=== PATIENT | male | born 1960 | race Caucasian/White ===

== ENCOUNTER 2017-02-05 12:52 | Outpatient (CLI) | payer OTHER ==
[2017-02-05 13:15] LABS: CREATININE 0.9 mg/dL (0.6-1.2)
[2017-02-05] MEDS ORDERED: IOPAMIDOL-300 100 ML VIAL ONE (13:18)
[2017-02-05] MEDS ORDERED: IOPAMIDOL-300 50 ML VIAL ONE (13:18)
[2017-02-05] MEDS ORDERED: IOPAMIDOL-300 100 ML VIAL IVP ONE (15:28)
[2017-02-05] MEDS ORDERED: IOPAMIDOL-300 50 ML VIAL PO ONE (15:28)
--- NOTE | 2017-02-05 17:58 | CT Report ---
CT ABDOMEN AND PELVIS WITH CONTRAST: 02/05/2017 CLINICAL INDICATION: Pain. Axial CT images of the abdomen and pelvis were obtained with 100 mL Isovue-300 intravenously as well as oral contrast. In accordance with CT protocol optimization, one or more of the following dose reduction techniques w ere utilized for this exam: automated exposure control, adjustment of mA and/or KV based on patient size, or use of iterative reconstructive technique. No previous CT is available for comparison. Limited evaluation of the lung bases is unremarkable. ABDOMEN: The liver demonstrates a decrease in attenuation, likely representing fatty infiltration. No focal lesion is seen. The spleen, pancreas, kidneys, and adrenal glands are unremarkable. The ga llbladder is not dilated. No bowel dilatation, free gas, or free fluid is present. The appendix is seen in the right lower quadrant, and is normal in caliber. PELVIS: The pelvic organs are unremarkable. No pelvic adenopathy or free fluid is present. No kaitlynn colonic inflammation is seen. Osseous structures demonstrate degenerative changes. IMPRESSION: NO EVIDENT ETIOLOGY FOR PATIENT'S PAIN. JOB #: [id number] EXT JOB #:[id number]
== END 2017-02-05 12:53 | disposition home or self-care (01) ==
LOC: DI 12:52
PROVIDERS: ATTEND Family Medicine
DX: R10.32 Left lower quadrant pain (principal)
CPT/HCPCS: 36415; 74177; 82565; Q9967

== ENCOUNTER 2017-07-08 10:50 | Day surgery (SDC) | payer OTHER ==
[2017-07-08] MEDS ORDERED: LACTATED RINGERS 1,000 ML IV ONE ×2 (11:58→14:15)
[2017-07-08] MEDS ORDERED: ceFAZolin 2 GM/50 ML 2 GM/50 ML BAG IV ONE (12:49)
[2017-07-08] MEDS ORDERED: BUPIVACAINE 0.25%-EPI 1:200000 PF 30 ML VIAL ONE (14:14)
[2017-07-08] MEDS ORDERED: BUPIVACAINE 0.25% PF 30 ML VIAL ONE (14:14)
[2017-07-08] MEDS ORDERED: ONDANSETRON 4 MG/2 ML VIAL IVP ONE (14:30)
[2017-07-08] MEDS ORDERED: fentaNYL 100 MCG/2 ML VIAL IVP ONE (14:30)
[2017-07-08] MEDS ORDERED: MIDAZOLAM 2 MG/2 ML VIAL IVP ONE (14:30)
[2017-07-08] MEDS ORDERED: KETOROLAC 30 MG/ML VIAL IVP ONE (14:30)
[2017-07-08] MEDS ORDERED: PROPOFOL 200 MG/20 ML VIAL IVP ONE (14:30)
[2017-07-08] MEDS ORDERED: LIDOCAINE-MPF 2% 5 ML VIAL IM ONE (14:30)
[2017-07-08] MEDS ORDERED: LIDOCAINE-MPF 1% 30 ML VIAL ONE (14:31)
[2017-07-08] MEDS ORDERED: LIDOCAINE 1% 50 ML MDV SUBQ ONE ×2 (14:38)
[2017-07-08 15:39] VITALS: BP 128/58
--- NOTE | 2017-07-09 22:33 | OPERATIVE REPORT ---
DATE OF SERVICE: 07/08/2017 Physician: Jesus Ratliff MD PREOPERATIVE DIAGNOSIS: Right fifth digit triggering. POSTOPERATIVE DIAGNOSIS: Right fifth digit triggering. PROCEDURE PERFORMED: Right fifth finger A1 beau release.. SURGEON: Jesus Ratliff MD CABINET ABRASIVE SANDBLASTER: None. ANESTHESIA: IV sedation. INDICATIONS FOR PROCEDURE: This man had recurrent snapping in his fifth finger, which had failed after 2 injections. He has had other triggering fingers previously. DESCRIPTION OF PROCEDURE: Patient was brought into the operating room and placed under light sedation by the anesthesiologist. A transverse incision was made along the distal palmar crease for a distance of about 1.5 cm. Skin dermis was cut sharply. Below this, scissors were used with a spreading action to create a path down to the A1 beau. The ulnar digital nerve tended to come across this area and great care was taken to keep it swept out of the way with a retractor. There was a moderate amount of fatty tissue surprisingly, which made it a little more difficult to get the A1 beau steadily exposed. A longitudinal incision was then made in the A1 beau. It was possible to flex or extend the finger and see the tendon slide smoothly. There was no tendency for it to shift. We aroused the patient somewhat and asked him to clench a fist and straighten out the fingers fully. This was done without any sign of skipping. Wound was irrigated with normal saline. The wound was closed with interrupted [id number] 4-0 nylon sutures. Sterile dressing was applied. Patient was then taken to recovery area in good condition, having tolerated the procedure well with less than 1 mL of blood loss. TD: 07/09/2017 22:32
== END 2017-07-08 10:51 | disposition home or self-care (01) ==
LOC: SDS 10:50
PROVIDERS: ATTEND Orthopaedic Surgery
PROC: 0LN70ZZ Release Right Hand Tendon, Open Approach (ICD-10-PCS; principal; 2017-07-08 12:00)
DX: M65.351 Trigger finger, right little finger (principal); I10 Essential (primary) hypertension; E78.5 Hyperlipidemia, unspecified; E03.9 Hypothyroidism, unspecified
CPT/HCPCS: 26055; J0690; J7120

== ENCOUNTER 2017-07-26 17:41 | Observation (INO) | payer OTHER ==
[2017-07-26 18:08] LABS: BASOPHILS # (AUTO) 0.1 10^3/uL (0.0-0.1); BASOPHILS % (AUTO) 0.9 %; EOSINOPHILS # (AUTO) 0.3 10^3/uL (0.0-0.7); EOSINOPHILS % (AUTO) 3.6 %; HGB - HEMOGLOBIN 15.9 g/dL (14.0-18.0); LYMPHOCYTES # (AUTO) 3.1 10^3/uL (1.5-3.5); LYMPHOCYTES % (AUTO) 35.3 %; MEAN CORPUSCULAR HGB CONC 33.7 g/dL (32.0-36.0); MEAN CORPUSCULAR VOLUME 92.2 fL (80.0-94.0); MEAN PLATELET VOLUME 9.8 fL (7.4-11.4); MONOCYTES # (AUTO) 0.8 10^3/uL (0.0-1.0); MONOCYTES % (AUTO) 9.5 %; NEUTROPHILS # (AUTO) 4.5 10^3/uL (1.5-6.6); NEUTROPHILS % (AUTO) 50.7 %; PLT - PLATELET COUNT 192 10^3/uL (130-450); RED BLOOD COUNT 5.13 10^6/uL (4.70-6.10); RED CELL DISTRIBUTION WIDTH 12.4 % (12.0-15.0); WHITE BLOOD COUNT 8.9 x10^3/uL (4.8-10.8)
[2017-07-26 18:19] LABS: ALBUMIN 4.6 g/dL (3.2-5.5); ALBUMIN/GLOBULIN RATIO 1.4 (1.0-2.2); BILIRUBIN,TOTAL 0.8 mg/dL (0.2-1.0); CALCIUM 9.5 mg/dL (8.5-10.3); TOTAL PROTEIN 7.8 g/dL (6.7-8.2)
--- NOTE | 2017-07-26 18:25 | ED Physician Documentation ---
History of Present Illness - Stated complaint Stated Complaint: CHEST PX - Chief complaint Chief Complaint: Cardiac - Additonal information Additional information: hx from pt 57 m hx HTN no DM HLD fhx smoking chest pressure and soa and nausea started at 8 AM waxed and waned all day worse with exertion better with rest no fever or cough no recent travel or leg edema Review of Systems Constitutional: denies: Fever, Chills Throat: denies: Sore throat Cardiac: reports: Chest pain / pressure Respiratory: reports: Dyspnea GI: reports: Nausea Musculoskeletal: denies: Extremity pain, Extremity swelling Endocrine: denies: Easy bruising / bleeding Immunocompromised: denies: Immunocompromised PD PAST MEDICAL HISTORY - Past Medical History Cardiovascular: Hypertension Respiratory: None Endocrine/Autoimmune: HyPOthyroidism GI: GI bleed : None HEENT: None Psych: Depression, Anxiety, ADD/ADHD Musculoskeletal: None Derm: Psoriasis - Past Surgical History General: Colonoscopy, EGD Ortho: Carpal Tunnel surgery, Other HEENT: Tonsil/Adenoidectomy - Present Medications Home Medications: Ambulatory Orders Medication Instructions Recorded Confirmed Dextroamphetamine/Amphetamine 12.5 mg PO BID 09/09/13 07/03/17 [Adderall 12.5 mg Tablet] Divalproex Sodium [Depakote ER] 500 mg PO DAILY 09/09/13 07/03/17 Fluoxetine HCl [Prozac] 40 mg PO DAILY 09/09/13 07/03/17 Levothyroxine [Synthroid] 100 mcg PO QDAC 09/09/13 07/03/17 Divalproex Sodium [Depakote ER] 500 mg PO DAILY 07/03/17 07/03/17 - Allergies Allergies/Adverse Reactions: Allergies Allergy/AdvReac Type Severity Reaction Status Date / Time No Known Drug Allergies Allergy Verified 07/03/17 10:55 PD ED PE NORMAL - Vitals Vital signs reviewed: Yes - General General: Alert and oriented X 3 - HEENT HEENT: PERRL - Neck Neck: Supple, no meningeal sign - Cardiac Cardiac: RRR - Respiratory Respiratory: No respiratory distress, Clear bilaterally - Abdomen Abdomen: Soft, Non tender - Derm Derm: Normal color - Extremities Extremities: No deformity, Normal ROM s pain, No edema, No calf tenderness / cord - Neuro Neuro: Alert and oriented X 3 Results - Vitals Vitals: Vital Signs - 24 hr 07/26/17 07/26/17 17:47 19:15 Temperature 36.6 C Heart Rate 65 57 L Respiratory 18 19 Rate Blood Pressure 168/86 H 147/105 H O2 Saturation 99 97 Oxygen O2 Source Room air - EKG (time done) 1748 Rate: Rate (enter#) (64) Rhythm: NSR [place]: Normal Intervals: Normal LA - Labs Labs: Laboratory Tests 07/26/17 07/26/17 07/26/17 18:00 18:00 18:00 WBC 8.9 RBC 5.13 Hgb 15.9 Hct 47.3 MCV 92.2 MCH 31.0 MCHC 33.7 RDW 12.4 Plt Count 192 MPV 9.8 Neut # 4.5 Lymph # 3.1 [place] # 0.8 Eos # 0.3 Baso # 0.1 Absolute Nucleated RBC 0.00 Nucleated RBC % 0.0 Sodium 135 Potassium 3.7 Chloride 102 Carbon Dioxide 25 Anion Gap 8.0 BUN 18 Creatinine 1.0 Estimated GFR (MDRD) 77 L Glucose 91 Calcium 9.5 Total Bilirubin 0.8 AST 24 ALT 27 Alkaline Phosphatase 77 Troponin I < 0.04 Total Protein 7.8 Albumin 4.6 Globulin 3.2 Albumin/Globulin Ratio 1.4 Lipase 33 - Rads (name of study) CXR Radiology: See rad report (NACPD) PD MEDICAL DECISION MAKING - ED course ED course: chest pain gone with nitro and asa heart score 4 will admit for serial enzymes and echo / stress Departure - Departure Disposition: ED Place in Observation Clinical Impression: Chest pain Qualifiers: Chest pain type: unspecified Qualified Code(s): R07.9 - Chest pain, unspecified Condition: Good
--- NOTE | 2017-07-26 18:29 | XRAY Preliminary Report ---
Exam: XR CHEST 2 VIEW X-RAY IMPRESSION: Normal 2-view chest radiography. [facility] SITE ID: [id number]
--- NOTE | 2017-07-26 18:29 | XRAY Report ---
EXAM: CHEST RADIOGRAPHY EXAM DATE: 07/26/2017 06:12 PM. CLINICAL HISTORY: Chest pain/soa. COMPARISON: None. TECHNIQUE: 2 views. FINDINGS: Lungs/Pleura: No focal opacities evident. No pleural effusion. No pneumothorax. Normal volumes. Mediastinum: Heart and mediastinal contours are unremarkable. Other: None. IMPRESSION: Normal 2-view chest radiography. [facility] Referring Provider Line: [phone] SITE ID: [id number]
[2017-07-26] MEDS ORDERED: NITROGLYCERIN SL 0.4 MG TABLET SL STA (19:07)
[2017-07-26] MEDS ORDERED: ASPIRIN CHEW 81 MG TABLET PO STA (19:07)
[2017-07-26] MEDS ORDERED: ACETAMINOPHEN 325 MG TABLET PO STA (20:53)
[2017-07-26] MEDS ORDERED: ACETAMINOPHEN 325 MG TABLET PO PRN (21:11)
[2017-07-26] MEDS ORDERED: oxyCODONE 5 MG TABLET PO PRN (21:11)
[2017-07-26] MEDS ORDERED: SODIUM CHLORIDE FLUSH 0.9% 10 ML SYRINGE IVP PRN (21:11)
[2017-07-26] MEDS ORDERED: ZOLPIDEM 5 MG TABLET PO PRN (21:11)
[2017-07-26] MEDS ORDERED: ONDANSETRON 4 MG/2 ML VIAL IVP PRN (21:11)
[2017-07-27] MEDS: SUCRALFATE 1 GM/10 ML UDC PO SCH ×3 (00:26→12:16)
[2017-07-27] MEDS: SODIUM CHLORIDE FLUSH 0.9% 10 ML SYRINGE IVP SCH ×2 (00:27→08:24)
--- NOTE | 2017-07-27 04:07 | HISTORY & PHYSICAL EXAMINATION ---
DATE OF SERVICE: 07/26/2017 Physician: Socorro Peterson MD CHIEF COMPLAINT: Chest pain. HISTORY OF PRESENT ILLNESS: Mr. Perez is a 57-year-old, white male with past medical history of hypertension, dyslipidemia, hypothyroidism, anxiety, depression, and with history of esophageal dilatation about 2 years ago. In addition, he has history of laparoscopic Conchita fundoplication and gastrointestinal bleed, which he had dealt with about 10 years ago. Patient reports that he woke up in the morning around 8 a.m., he started to experience a pressure-like chest discomfort. He was nauseous and he felt he would throw up, but did not have emesis. He felt chest pressure, heaviness-like discomfort. It felt like indigestion. Patient measured his blood pressure and it was 140/90, which is higher than his usual. He also complained of some shortness of breath. His symptoms are waxing and waning throughout the day. He never experienced similar chest pain in the past. Notably, about 10 years ago when he had fundoplication, he did have chest pain, but he felt it was different. Two years ago, when he had esophageal dilatation for dysphagia, his symptoms included food being stuck in his throat, but at that time he did not remember having chest pain. On further interview, he reports never undergoing a cardiac evaluation. He does not have history of coronary artery disease, diabetes, and he never saw a butter maker. Regarding patient's habits, he is a nonsmoker. He drinks every day, usually drinks a couple of beers or a glass of wine. Upon presentation to the ER, patient was hemodynamically stable and afebrile. Initial blood pressure was 168/86, heart rate was in the 60s, respiratory rate 18, oxygen saturation 99% on room air. ER workup showed negative troponin, normal EKG. ER physician suggested we admit this patient for chest pain rule out. PAST MEDICAL HISTORY 1. Dyslipidemia. 2. Hypertension, recently started hydrochlorothiazide. 3. Hypothyroidism. 4. Depression/anxiety. 5. History of laparoscopic Conchita fundoplication about 10 years ago. 6. History of GI bleed about 10 years ago. No further details available. 7. Status post esophageal dilatation 2 years ago, history of dysphagia. 8. Carpal tunnel release. FAMILY HISTORY: Positive for hypertension and Parkinson disease in the mother and heart disease in a grandparent. SOCIAL HISTORY: Patient does not smoke. Drinks daily, usually drinks a couple of beers or a glass of wine with dinner. PRIMARY CARE PHYSICIAN: Pam Jack REVIEW OF SYSTEMS: Please see pertinent positives listed above at history of present illness. Patient denied additional complaints on the 12-point review. OUTPATIENT MEDICATIONS Medication list is not yet updated or verified. Patient was on: 1. Adderall. 2. Depakote 3. Fluoxetine. 4. Levothyroxine. 5. Hydrochlorothiazide. PHYSICAL EXAMINATION VITAL SIGNS: Please see listed above at history of present illness. GENERAL: Patient is a well-developed, well-nourished male who was not in distress. CARDIOVASCULAR: S1, S2. Regular. No pathologic murmur. RESPIRATORY: Clear to auscultation bilaterally without wheezes or crackles. ABDOMEN: Soft, benign, nontender. Normal bowel tones. LYMPHATIC: No lymphedema. MUSCULOSKELETAL: Unremarkable, atraumatic. SKIN: No jaundice. No pallor. NEUROLOGIC: Alert, oriented, nonfocal. PSYCHIATRIC: Cooperative, pleasant to talk to. ASSESSMENT AND PLAN: Mr. Perez is a 57-year-old male. He does have some cardiac risk factors which include hypertension and dyslipidemia. At the same time, he does have history of esophageal dilatation, and history of hiatal hernia and Conchita fundoplication. His symptoms starting in the morning, being associated with nausea and indigestion, suggest a possible esophageal origin or reflux as the etiology. Therefore, we are going to treat him with proton pump inhibitor and sucralfate. At the same time, we are observing him overnight for rapid cardiac rule out. He will be monitored on telemetry. We will cycle troponins. If he rules out per enzyme criteria, then further risk stratification could be considered with stress test. I am not sure whether a stress test could be done over the weekend inpatient. If not, then we could refer patient for outpatient stress test. Additional orders will include DVT prophylaxis. I will restart outpatient medications when reconciliation is available. FULL CODE. Attestation: I certify that the reasonable expectation for this patient is be hospitalized for less than 48 hrs, therefore he is admitted under observation. Time spent in the care of this patient was 50 minutes. cc: Pam Jack DO TD: 07/27/2017 04:06 MTDHannah
[2017-07-27] MEDS ORDERED: PANTOPRAZOLE 40 MG TABLET PO SCH (07:00)
[2017-07-27] MEDS ORDERED: POLYETHYLENE GLYCOL 3350 17 GM PACKET PO SCH (09:00)
--- NOTE | 2017-07-27 11:53 | Discharge Plan ---
Discharge Plan Disposition: 01 Home, Self Care Condition: Stable Diet: Low Sodium Activity Restrictions: Activity as Tolerated Shower Restrictions: No Driving Restrictions: No Additional Instructions or Follow Up instructions: SEE YOUR DOCTOR IN FOLLOW UP THIS COMING WEEK FOR FURTHER EVALUATION AND MANAGEMENT OF THIS SYMPTOM. No Smoking: If you smoke, Please STOP! Call for help. Follow-up with: Pam Jack DO [Primary Care Provider] -
[2017-07-27 12:40] VITALS: BP 121/89
--- NOTE | 2017-07-29 19:40 | PROVIDER PROGRESS NOTE ---
Assessment/Plan - Problem List (1) Atypical chest pain Assessment/Plan: DATE OF SERVICE 07/27/17 The patient's symptoms were more indigestion in nature than angina-like. And due to his extensive GI history, GI F/U was advised ,after he has now ruled out for an [place] with normal troponins and EKG with no changes since the initial ER EKG. He will be discharged today, but needs an outpatient stress test, given his coronary risk factors. F/U with his PCP is advised this week to arrange a stress test and/or referral to a Nutritional Chemist. Light activity is advised until CAD is ruled out. (2) GERD (gastroesophageal reflux disease) Assessment/Plan: History of esophageal stricture needimg dilitation and hiatal hernia neding a Dyllan fundoplication, suggest that these symptoms may be of a GI origin. He was advised to see his PCP this week, for further testing and management. (3) HTN (hypertension) Qualifiers: Hypertension type: essential hypertension Qualified Code(s): I10 - Essential (primary) hypertension Assessment/Plan: His medications were continued with adequate BP control. F/U: with PCP in 1 week. Code Status: Full Code Medications at discharge: unchanged from pre-hospitalization. - Lab Result Fish Bone Diagrams: 07/26/17 18:00 07/26/17 18:00 - EKG Results EKG Interpreted Independently: Yes EKG Comparison: Unchanged from prior EKG Subjective - Subjective Patient Reports: Feeling Better, No Complaints Nursing Reports: Other (No chest pain since admission) Objective Vital Signs: Oxygen O2 Source Room air I&O (Last 24 Hrs): Intake and Output Totals x24h 07/27/17 07/28/17 07/29/17 23:59 23:59 23:59 Intake Total 1100 Balance 1100 General: Alert, Oriented x3 HEENT: Mucous membr. moist/pink Neck: Supple, No JVD, +2 carotid pulse wo bruit Neuro: Non Focal Cardiovascular: Regular rate, No murmurs Respiratory: No respiratory distress, Breath sounds nml Abdomen: Normal bowel sounds, Soft Extremities: No edema - Results Results: Laboratory Results WBC 8.9 x10^3/uL (4.8-10.8) 07/26/17 18:00 RBC 5.13 10^6/uL (4.70-6.10) 07/26/17 18:00 Hgb 15.9 g/dL (14.0-18.0) 07/26/17 18:00 Hct 47.3 % (42.0-52.0) 07/26/17 18:00 MCV 92.2 fL (80.0-94.0) 07/26/17 18:00 MCH 31.0 pg (27.0-31.0) 07/26/17 18:00 MCHC 33.7 g/dL (32.0-36.0) 07/26/17 18:00 RDW 12.4 % (12.0-15.0) 07/26/17 18:00 Plt Count 192 10^3/uL (130-450) 07/26/17 18:00 MPV 9.8 fL (7.4-11.4) 07/26/17 18:00 Neut # 4.5 10^3/uL (1.5-6.6) 07/26/17 18:00 Lymph # 3.1 10^3/uL (1.5-3.5) 07/26/17 18:00 [place] # 0.8 10^3/uL (0.0-1.0) 07/26/17 18:00 Eos # 0.3 10^3/uL (0.0-0.7) 07/26/17 18:00 Baso # 0.1 10^3/uL (0.0-0.1) 07/26/17 18:00 Absolute Nucleated RBC 0.00 x10^3/uL 07/26/17 18:00 Nucleated RBC % 0.0 /100WBC 07/26/17 18:00 Sodium 135 mmol/L (135-145) 07/26/17 18:00 Potassium 3.7 mmol/L (3.5-5.0) 07/26/17 18:00 Chloride 102 mmol/L (101-111) 07/26/17 18:00 Carbon Dioxide 25 mmol/L (21-32) 07/26/17 18:00 Anion Gap 8.0 (6-13) 07/26/17 18:00 BUN 18 mg/dL (6-20) 07/26/17 18:00 Creatinine 1.0 mg/dL (0.6-1.2) 07/26/17 18:00 Estimated GFR (MDRD) 77 (>89) L 07/26/17 18:00 Glucose 91 mg/dL (70-100) 07/26/17 18:00 Calcium 9.5 mg/dL (8.5-10.3) 07/26/17 18:00 Total Bilirubin 0.8 mg/dL (0.2-1.0) 07/26/17 18:00 AST 24 IU/L (10-42) 07/26/17 18:00 ALT 27 IU/L (10-60) 07/26/17 18:00 Alkaline Phosphatase 77 IU/L (42-121) 07/26/17 18:00 Troponin I < 0.04 ng/mL (<0.49) 07/27/17 09:36 Total Protein 7.8 g/dL (6.7-8.2) 07/26/17 18:00 Albumin 4.6 g/dL (3.2-5.5) 07/26/17 18:00 Globulin 3.2 g/dL (2.1-4.2) 07/26/17 18:00 Albumin/Globulin Ratio 1.4 (1.0-2.2) 07/26/17 18:00 Lipase 33 U/L (22-51) 07/26/17 18:00 - Procedures Procedures: Procedures DILATION OF ESOPHAGOGASTRIC JUNCTION, ENDO (05/06/15) EXCISION OF DUODENUM, ENDO, DIAGN (04/22/15) EXCISION OF LOWER ESOPHAGUS, ENDO, DIAGN (04/22/15) EXPLOR TEND SHEATH-HAND (09/10/13) INSPECTION OF LOWER INTESTINAL TRACT, ENDO (01/25/15) OTHER LOCAL DESTRUC SKIN (09/10/13) RELEASE RIGHT HAND TENDON, OPEN APPROACH (07/08/17) ABX Reporting Has patient been on IV antibiotics over the past 48 hours?: No
== END 2017-07-27 12:45 | disposition home or self-care (01) ==
LOC: ED 17:41 → OBS 21:11
PROVIDERS: ADMIT Internal Medicine; ATTEND Internal Medicine
DX: R07.89 Other chest pain (principal); K21.9 Gastro-esophageal reflux disease without esophagitis; I10 Essential (primary) hypertension; E03.9 Hypothyroidism, unspecified; F90.9 Attention-deficit hyperactivity disorder, unspecified type; F41.9 Anxiety disorder, unspecified; F32.9 Major depressive disorder, single episode, unspecified; E78.5 Hyperlipidemia, unspecified; Z87.19 Personal history of other diseases of the digestive system; Z79.899 Other long term (current) drug therapy
CPT/HCPCS: 36415; 71046; 80053; 83690; 84484; 85025; 93005; 99218; 99284; A9270

== ENCOUNTER 2017-08-08 10:02 | Outpatient (CLI) | payer OTHER ==
[2017-08-08 13:34] LABS: CHOL/HDL RATIO 3.9 (<5.0); CHOLESTEROL 206 mg/dL; HDL CHOLESTEROL 53 mg/dL; LDL CHOLESTEROL,CALCULATED 118 mg/dL; LDL/HDL RATIO 2.2 (<3.6); VLDL CHOLESTEROL 35 mg/dL
== END 2017-08-08 10:03 | disposition home or self-care (01) ==
LOC: LAB.WCP 10:02
PROVIDERS: ATTEND Family Medicine
DX: R07.9 Chest pain, unspecified (principal); E03.9 Hypothyroidism, unspecified
CPT/HCPCS: 36415; 80061; 83721; 84443

== ENCOUNTER 2017-12-05 13:54 | Outpatient (CLI) | payer OTHER | END 2017-12-05 13:55 | disposition home or self-care (01) | LOC: SC 13:54 | PROVIDERS: ATTEND Internal Medicine Pulmonary Disease | DX: G47.10 Hypersomnia, unspecified (principal); R06.83 Snoring; G47.8 Other sleep disorders; E66.9 Obesity, unspecified; Z68.30 Body mass index [BMI] 30.0-30.9, adult | CPT/HCPCS: 99203; 99212 ==

== ENCOUNTER → 2017-12-27 | Outpatient (CLI) | payer OTHER | LOC: SC 19:30 | PROVIDERS: ATTEND Internal Medicine Pulmonary Disease | DX: G47.10 Hypersomnia, unspecified (principal); R06.83 Snoring; R53.83 Other fatigue; F32.9 Major depressive disorder, single episode, unspecified | CPT/HCPCS: 95806 ==

== ENCOUNTER 2020-01-18 08:06 | Outpatient (CLI) | payer OTHER ==
[2020-01-18 11:56] LABS: BASOPHILS # (AUTO) 0.1 10^3/uL (0.0-0.1); BASOPHILS % (AUTO) 0.8 %; EOSINOPHILS # (AUTO) 0.4 10^3/uL (0.0-0.7); EOSINOPHILS % (AUTO) 5.7 %; HGB - HEMOGLOBIN 15.3 g/dL (14.0-18.0); LYMPHOCYTES # (AUTO) 2.6 10^3/uL (1.5-3.5); LYMPHOCYTES % (AUTO) 34.1 %; MEAN CORPUSCULAR HEMOGLOBIN 31.7 pg (27.0-31.0); MEAN CORPUSCULAR VOLUME 95.9 fL (80.0-94.0); MEAN PLATELET VOLUME 12.7 fL (7.4-11.4); MONOCYTES # (AUTO) 0.7 10^3/uL (0.0-1.0); MONOCYTES % (AUTO) 9.5 %; NEUTROPHILS # (AUTO) 3.7 10^3/uL (1.5-6.6); NEUTROPHILS % (AUTO) 49.5 %; PLT - PLATELET COUNT 183 10^3/uL (130-450); RED BLOOD COUNT 4.83 10^6/uL (4.70-6.10); RED CELL DISTRIBUTION WIDTH 11.8 % (12.0-15.0); WHITE BLOOD COUNT 7.5 x10^3/uL (4.8-10.8)
[2020-01-18 12:35] LABS: ALBUMIN 4.2 g/dL (3.2-5.5); ALBUMIN/GLOBULIN RATIO 1.4 (1.0-2.2); ALKALINE PHOSPHATASE 72 IU/L (42-121); ALT ALANINE AMINOTRANSFERASE 32 IU/L (10-60); AST ASPARTATE AMINOTRANSFERASE 24 IU/L (10-42); BUN - BLOOD UREA NITROGEN 17 mg/dL (6-20); CALCIUM 9.3 mg/dL (8.5-10.3); CARBON DIOXIDE - CO2 27 mmol/L (21-32); CHLORIDE 100 mmol/L (101-111); CHOLESTEROL 217 mg/dL; GLUCOSE 115 mg/dL (70-100); HDL CHOLESTEROL 43 mg/dL; LDL CHOLESTEROL,CALCULATED 146 mg/dL; LDL/HDL RATIO 3.4 (<3.6); SODIUM 136 mmol/L (135-145); TOTAL PROTEIN 7.2 g/dL (6.7-8.2); VLDL CHOLESTEROL 28 mg/dL
== END 2020-01-18 23:59 | disposition home or self-care (01) ==
LOC: LAB.WCP 08:06
PROVIDERS: ATTEND Family Medicine
DX: I10 Essential (primary) hypertension (principal); E78.5 Hyperlipidemia, unspecified; Z12.5 Encounter for screening for malignant neoplasm of prostate; E03.9 Hypothyroidism, unspecified
CPT/HCPCS: 36415; 80053; 80061; 83721; 84153; 84443; 85025

== ENCOUNTER 2021-02-23 08:00 | Outpatient (CLI) | payer OTHER ==
[2021-02-23 12:06] LABS: BASOPHILS # (AUTO) 0.1 10^3/uL (0.0-0.1); BASOPHILS % (AUTO) 0.8 %; EOSINOPHILS # (AUTO) 0.4 10^3/uL (0.0-0.7); EOSINOPHILS % (AUTO) 5.4 %; HGB - HEMOGLOBIN 16.3 g/dL (14.0-18.0); LYMPHOCYTES # (AUTO) 2.3 10^3/uL (1.5-3.5); LYMPHOCYTES % (AUTO) 32.2 %; MEAN CORPUSCULAR HEMOGLOBIN 31.7 pg (27.0-31.0); MEAN CORPUSCULAR VOLUME 93.4 fL (80.0-94.0); MEAN PLATELET VOLUME 12.1 fL (7.4-11.4); MONOCYTES # (AUTO) 0.7 10^3/uL (0.0-1.0); MONOCYTES % (AUTO) 9.2 %; NEUTROPHILS # (AUTO) 3.8 10^3/uL (1.5-6.6); PLT - PLATELET COUNT 189 10^3/uL (130-450); RED BLOOD COUNT 5.14 10^6/uL (4.70-6.10); RED CELL DISTRIBUTION WIDTH 11.7 % (12.0-15.0); WHITE BLOOD COUNT 7.3 x10^3/uL (4.8-10.8)
[2021-02-23 12:54] LABS: ALBUMIN 4.4 g/dL (3.2-5.5); ALBUMIN/GLOBULIN RATIO 1.4 (1.0-2.2); ALKALINE PHOSPHATASE 85 IU/L (42-121); ALT ALANINE AMINOTRANSFERASE < 10 IU/L (10-60); AST ASPARTATE AMINOTRANSFERASE 26 IU/L (10-42); BILIRUBIN,TOTAL 1.1 mg/dL (0.2-1.0); BUN - BLOOD UREA NITROGEN 19 mg/dL (6-20); CALCIUM 9.5 mg/dL (8.5-10.3); CARBON DIOXIDE - CO2 28 mmol/L (21-32); CHLORIDE 101 mmol/L (101-111); CHOL/HDL RATIO 4.3 (<5.0); CHOLESTEROL 206 mg/dL; CREATININE 1.2 mg/dL (0.6-1.2); GFR - MDRD 62 (>89); GLUCOSE 114 mg/dL (70-100); HDL CHOLESTEROL 48 mg/dL; LDL CHOLESTEROL,CALCULATED 143 mg/dL; POTASSIUM 4.1 mmol/L (3.5-5.0); SODIUM 138 mmol/L (135-145); TOTAL PROTEIN 7.5 g/dL (6.7-8.2); TRIGLYCERIDES 75 mg/dL; VLDL CHOLESTEROL 15 mg/dL
[2021-02-23 13:02] LABS: THYROID STIMULATING HORMONE 2.01 uIU/mL (0.34-5.60)
== END 2021-02-23 23:59 ==
LOC: LAB.WCP 08:00
PROVIDERS: ATTEND Family Medicine
DX: I10 Essential (primary) hypertension (principal); Z12.5 Encounter for screening for malignant neoplasm of prostate
CPT/HCPCS: 36415; 80053; 80061; 83721; 84153; 84443; 85025

== ENCOUNTER 2022-04-17 10:03 | Outpatient (CLI) | payer OTHER ==
--- NOTE | 2022-04-18 15:11 | Ultrasound Report ---
LIMITED ULTRASOUND OF RIGHT BREAST: 04/17/2022 CLINICAL: Palpable right breast lumps x 2. Comparison is made to exam dated: 04/17/2022 mammogram - [facility]. Color flow and real-time ultrasound of the right breast 2-3 o'clock region were performed. Mosley scal e images of the real-time examination were reviewed. There is a benign 1.4 cm x 1.2 cm x 0.3 cm oval lipoma in the right breast at 2 o'clock posterior dep th 9 cm from the nipple with the long axis parallel to the skin. This oval lipoma is isoechoic with no posterior acoustic shadowing or enhancement. This correlates as palpated. Color flow imaging dem onstrates that there is no vascularity present. There also is a bony prominence in the right breast at 3 o'clock posterior depth corresponding to the 3:00 palpable abnormality. This mass displays posterior acoustic shadowing and is contiguous with t he adjacent rib. IMPRESSION: BENIGN The 1.4 cm x 1.2 cm x 0.3 cm oval lipoma corresponds to the palpable abnormality in the right breast at 2 o'clock posterior depth, and is benign. The palpable mass at the 3:00 position correlates with a bony prominence at the costosternal junction . This is likely hypertrophic degeneration. If there is further concern of malignant bony lesion, CT of the chest with marker on the palpable abnormality would be recommended. Findings and recommendations were conveyed to the patient at time of exam. This exam was interpreted at Station ID: [id number]. Electronically Signed By: Abby lisa/:04/17/2022 13:06:51 Ultrasound BI-RADS: 2 Benign BI-RADS CATEGORY: (2) - 2 Unspecified - other recall n/a LATERALITY: (B)
--- NOTE | 2022-04-18 15:11 | Mammography Report ---
MALE BILATERAL DIGITAL DIAGNOSTIC MAMMOGRAM 3D/2D WITH CLEAVAGE LATEROMEDIAL: 04/17/2022 CLINICAL: Palpable right chest lumps Baseline exam. . No prior exams were available for comparison. Minimal symmetric gynecomastia is present. No significant masses, calcifications, or other findings are seen in either breast. Specifically, the areas of palpable abnormality were not included on the mammographic field of view, and no partial abnormalities in the 2:00 and 4:00 region of the right breast were seen. IMPRESSION: INCOMPLETE: NEEDS ADDITIONAL IMAGING EVALUATION There are no abnormalities seen in the right breast to correspond with the palpable abnormalities at 2 and 4 o'clock. Ultrasound is recommended for full evaluation of this area. This was performed immediately following this exam. This exam was interpreted at Station ID: [id number]. NOTE: For mammograms, a report in lay terms will be sent to the patient. Approximately 15% of breast malignancies will not be visualized mammographically. In the management of a palpable breast mass, a negative mammogram must not discourage biopsy of a clinically suspicious lesion. Electronically Signed By: Abby lisa/:04/17/2022 10:59:01 ACR BI-RADS Category 0: Incomplete 3340F PARENCHYMAL PATTERN: (F) - The breast(s) demonstrate(s) diffuse fatty replacement. BI-RADS CATEGORY: (0) - 0 Ultrasound [id number] Immediate follow-up LATERALITY: (B)
== END 2022-04-17 10:04 | disposition home or self-care (01) ==
LOC: DI 10:03
PROVIDERS: ATTEND Physician Assistant
DX: D17.79 Benign lipomatous neoplasm of other sites (principal)

== ENCOUNTER 2022-06-05 10:25 | Emergency (ER) | payer OTHER ==
[2022-06-05 11:19] LABS: BASOPHILS # (AUTO) 0.1 10^3/uL (0.0-0.1); BASOPHILS % (AUTO) 0.6 %; EOSINOPHILS # (AUTO) 0.3 10^3/uL (0.0-0.7); EOSINOPHILS % (AUTO) 3.1 %; HCT - HEMATOCRIT 49.4 % (42.0-52.0); HGB - HEMOGLOBIN 16.4 g/dL (14.0-18.0); LYMPHOCYTES # (AUTO) 2.3 10^3/uL (1.5-3.5); LYMPHOCYTES % (AUTO) 23.6 %; MEAN CORPUSCULAR HEMOGLOBIN 31.2 pg (27.0-31.0); MEAN CORPUSCULAR HGB CONC 33.2 g/dL (32.0-36.0); MEAN CORPUSCULAR VOLUME 94.1 fL (80.0-94.0); MEAN PLATELET VOLUME 10.8 fL (7.4-11.4); MONOCYTES # (AUTO) 0.8 10^3/uL (0.0-1.0); MONOCYTES % (AUTO) 8.3 %; NEUTROPHILS # (AUTO) 6.2 10^3/uL (1.5-6.6); NEUTROPHILS % (AUTO) 64.2 %; PLT - PLATELET COUNT 223 10^3/uL (130-450); RED BLOOD COUNT 5.25 10^6/uL (4.70-6.10); RED CELL DISTRIBUTION WIDTH 11.5 % (12.0-15.0); WHITE BLOOD COUNT 9.6 x10^3/uL (4.8-10.8)
[2022-06-05 11:33] LABS: ALBUMIN 4.7 g/dL (3.2-5.5); ALBUMIN/GLOBULIN RATIO 1.5 (1.0-2.2); BILIRUBIN,TOTAL 0.9 mg/dL (0.2-1.0); CALCIUM 9.8 mg/dL (8.5-10.3); POTASSIUM 4.2 mmol/L (3.5-5.0); TOTAL PROTEIN 7.9 g/dL (6.7-8.2)
--- NOTE | 2022-06-05 12:22 | ED Physician Documentation ---
PD HPI ABD PAIN - Stated complaint Stated Complaint: ABD PX - Chief complaint Chief Complaint: Abd Pain - History obtained from History obtained from: Patient, Family - Additional information Additional information: The patient comes to the emergency department with chief complaint of intermittent abdominal pain and of constipation for the last 8 weeks. The patient states that there is nothing really that seem to trigger the pain or the constipation; he has a history of Parkinson's disease and about 6 weeks ago, had an increase in the dosing of his carbidopa levodopa. He states that he told his Parkinson's specialist about some nausea that he was having when he would take his medicines and he was told to eat more bananas. Other than that, he was not given any sort of guidance as far as his constipation and has not seen his primary doctor for this. He did have an appoint with a archery equipment hay sorter last week, but it was canceled and rescheduled for June 27. The patient states he gets intermittent pains in his mid abdomen which can sometimes be cramping and sometimes sharp. He states it can be quite uncomfortable but generally resolves on its own. He is not having the pain right now. He has had occasional nausea but no vomiting. His last bowel movement was about 4 days ago and was diarrhea. The patient has been taking Dulcolax to try to soften his stools. He has not taken any liquid laxatives or enemas at home. states they have not tried to make an appointment with the primary doctor because they had the gastroenterology appointment coming up. They are also concerned because the patient seems to be coming increasingly fatigued over the last couple of weeks. He is also had some chills and a little bit of a cough. The does admit that the patient is really not eating very much. She states they try to make sure he drinks enough but that he does not probably always drink as much as he should. No other complaints at this time. He is not on any narcotics or benzodiazepines. PD PAST MEDICAL HISTORY - Past Medical History Cardiovascular: Hypertension Respiratory: None Neuro: None Endocrine/Autoimmune: HyPOthyroidism GI: GI bleed : None HEENT: None Psych: Depression, Anxiety, ADD/ADHD Musculoskeletal: None Derm: Psoriasis - Past Surgical History General: Colonoscopy, EGD Ortho: Carpal Tunnel surgery, Other HEENT: Tonsil/Adenoidectomy - Present Medications Home Medications: Ambulatory Orders Medication Instructions Recorded Confirmed Dextroamphetamine/Amphetamine 12.5 mg PO BID 09/09/13 07/27/17 [Adderall 12.5 mg Tablet] Fluoxetine HCl [Prozac] 40 mg PO DAILY 09/09/13 07/27/17 Levothyroxine [Synthroid] 100 mcg PO QDAC 09/09/13 07/27/17 Divalproex Sodium [Depakote ER] 500 mg PO DAILY 07/03/17 07/27/17 hydroCHLOROthiazide [Hydrodiuril] 12.5 mg PO DAILY 07/27/17 07/27/17 - Allergies Allergies/Adverse Reactions: Allergies Allergy/AdvReac Type Severity Reaction Status Date / Time No Known Drug Allergies Allergy Verified 06/05/22 11:03 - Social History Does the pt smoke?: No Smoking Status: Never smoker Does the pt drink ETOH?: Yes - Immunizations Immunizations are current?: Yes - POLST Patient has POLST: No PD ED PE NORMAL - Vitals Vital signs reviewed: Yes - General General: Alert and oriented X 3, No acute distress, Well developed/nourished - HEENT HEENT: Atraumatic, PERRL, EOMI, Moist mucous membranes - Neck Neck: Supple, no meningeal sign - Cardiac Cardiac: RRR, No murmur, Strong equal pulses - Respiratory Respiratory: No respiratory distress, Clear bilaterally - Abdomen Abdomen: Soft, Non tender, Non distended - Derm Derm: Normal color, Warm and dry, No rash - Extremities Extremities: No deformity - Neuro Neuro: Alert and oriented X 3 - Psych Psych: Normal mood, Normal affect Results - Vitals Vitals: Vital Signs - 24 hr 06/05/22 06/05/22 06/05/22 10:59 12:36 14:16 Temperature 36.5 C Heart Rate 91 77 81 Respiratory 16 18 13 Rate Blood Pressure 173/78 H 157/99 H 156/94 H O2 Saturation 99 96 100 Oxygen O2 Source Room air - Labs Labs: Laboratory Tests 06/05/22 06/05/22 06/05/22 11:11 11:11 13:24 WBC 9.6 RBC 5.25 Hgb 16.4 Hct 49.4 MCV 94.1 H MCH 31.2 H MCHC 33.2 RDW 11.5 L Plt Count 223 MPV 10.8 Neut # (Auto) 6.2 Lymph # (Auto) 2.3 [place] # (Auto) 0.8 Eos # (Auto) 0.3 Baso # (Auto) 0.1 Absolute Nucleated RBC 0.00 Nucleated RBC % 0.0 Sodium 136 Potassium 4.2 Chloride 98 L Carbon Dioxide 27 Anion Gap 11.0 BUN 18 Creatinine 1.0 Estimated GFR (MDRD) 76 L Glucose 118 H Calcium 9.8 Total Bilirubin 0.9 AST 21 ALT 12 Alkaline Phosphatase 82 Total Protein 7.9 Albumin 4.7 Globulin 3.2 Albumin/Globulin Ratio 1.5 Lipase 39 Urine Color LIGHT YELLOW Urine Clarity CLEAR Urine pH 6.5 Ur Specific [place] <=1.005 Urine Protein NEGATIVE Urine Glucose (UA) NEGATIVE Urine Ketones NEGATIVE Urine Occult Blood NEGATIVE Urine Nitrite NEGATIVE Urine Bilirubin NEGATIVE Urine Urobilinogen 0.2 (NORMAL) Ur Leukocyte Esterase NEGATIVE Ur Microscopic Review NOT INDICATED Urine Culture Comments NOT INDICATED - Rads (name of study) CT abd/pelvis Relevant Findings:: Final report received, See rad report (colon wall thickening, underfilling vs colitis) PD Medical Decision Making - ED course Complexity details: reviewed results, re-evaluated patient, considered differential, d/w patient, d/w family ED course: I discussed with the patient and his that we can certainly screen for any emergent condition, but as far as his chronic constipation, I am not going to ne cessarily be able to give him an exact answer as to why this is happening. I suspect it is probably partly related to his Parkinson's and partly to the medications he is on. He has unfortunately not attempted to follow-up with his primary care physician and has no appointment scheduled. I have ordered CBC and an ER abdominal panel, as well as a UA and CT scan of the abdomen and pelvis. He will be given some IV fluids. The laboratory studies were reviewed by me, and unremarkable. His CT actually showed underfilling of the Large intestine and no sign of constipation/obstipation whatsoever. The clark appeared thickened, most likely because of this, although radiologist did state colitis could not be excluded. However, clinically, I do not feel the patient has colitis. The patient and his were advised that there is no evidence of constipation and in fact, the patient's intestines appear underfilled. They will need to work with the primary doctor to further determine the cause of the patient's fatigue and ongoing abdominal discomfort and appetite loss. Contributing factors include, but are not limited to, the Parkinson's disease and its progression, the medications for Parkinson's disease, and the lack of adequate p.o. intake by the patient. He is advised to follow-up as soon as possible in the outpatient setting to determine what can be done for these chronic issues. We discussed the usual indications for return. Departure - Departure Disposition: 01 Home, Self Care Clinical Impression: Abdominal pain Qualifiers: Abdominal location: generalized Qualified Code(s): R10.84 - Generalized abdominal pain Fatigue Qualifiers: Fatigue type: unspecified Qualified Code(s): R53.83 - Other fatigue Condition: Stable Instructions: ED Abdominal Pain Unkn Cause Male Comments: The laboratory studies look good. The abdominal CT Is unremarkable for any findings of concern. There actually is not very much stool in the bowels, and the bowel clark are thickened from under distention. At this point in time, it is extremely important that you follow-up with your primary doctor and your other specialists to discuss other potential underlying causes of your symptoms, and whether you may need a colonoscopy. It is also important to discuss what to expect with the Parkinson's progression and the medications you are on so that you can better understand development of some of the symptoms. The fatigue could be from anything from the Parkinson's disease, the medications, or the lack of adequate nutritional intake and hydration. Is important that you drink 8 to 10 cups of water each day and if regular food seems unpalatable, then perhaps try drinking a nutritional drinks such as Ensure. If you still feel that you need to clear out stool, you can use a liquid laxative or enema [id number], but at this point in time, there is no evidence on CT that you have any sort of backup of stool. Please call for the next available appointment to follow-up with your primary doctor. Discharge Date/Time: 06/05/22 14:28
[2022-06-05] MEDS ORDERED: SODIUM CHLORIDE 0.9% 1,000 ML IV STA (12:25)
[2022-06-05] MEDS ORDERED: iohexoL-300 100 ML VIAL ONE (12:46)
--- NOTE | 2022-06-05 13:26 | CT Report ---
PROCEDURE: ABDOMEN/PELVIS W INDICATIONS: low abdominal pain, worsening, difficulty with BM CONTRAST: 100ml Omnipaque 300 TECHNIQUE: After the administration of IV contrast, 5 mm thick sections acquired from the diaphragms to the symp hysis. 5 mm thick coronal and sagittal reformats were acquired. For radiation dose reduction, the f ollowing was used: automated exposure control, adjustment of mA and/or kV according to patient size. COMPARISON: 02/05/2017 FINDINGS: Image quality: Excellent. ABDOMEN: Lung bases: Linear scarring/atelectasis in posterior aspect of bilateral lung bases are seen. Heart size is normal. Solid organs: Liver and spleen are normal in size and enhancement. Gallbladder is within normal [place] its. Biliary system is non dilated. Pancreas enhances normally. No adrenal nodules. Kidneys demon strate normal size and enhancement, without hydronephrosis. Peritoneum and bowel: Postsurgical changes are noted in upper gastric region with multiple surgical c lips. There is no evidence of bowel obstruction. No gastric or small bowel wall thickening. Appendix is visualized and is within normal limits. Mild fecal stasis in the ascending colon is seen. Question able wall thickening involving mid to distal transverse colon, splenic flexure and descending colon i s seen with very mild pericolonic fat stranding. Surgical clips are also noted adjacent to distal tra nsverse colon/splenic flexure. No abscess collection. No free fluid or air. Nodes and vessels: No retroperitoneal or mesenteric adenopathy by size criteria. Aorta and inferior vena cava are normal in size. Miscellaneous: No ventral hernias. PELVIS: Genitourinary: Urinary bladder is markedly distended. Bladder wall thickness is normal. Miscellaneous: No inguinal hernias or adenopathy. Bones: No suspicious bony lesions. No vertebral body compression fractures. Degenerative disc dise ase throughout lower thoracic and lumbar spine is seen. IMPRESSION: 1. Finding may represent very mild colitis involving distal transverse colon, splenic flexure, and de scending colon. This could also be due to underdistention. No bowel obstruction. No other area of abn ormal bowel wall thickening. Normal appendix. No free fluid of free air. Postsurgical changes are see n in epigastric region and left upper quadrant. 2. No renal stones or hydronephrosis. Distended urinary bladder. No gross bladder wall abnormalities. Reviewed by: Timur Tello MD on 06/05/2022 12:24 PM [facility] Approved by: Timur Tello MD on 06/05/2022 12:24 PM [facility]DT Station ID: [id number]
[2022-06-05 13:27] LABS: BILIRUBIN,URINE NEGATIVE (NEGATIVE); GLUCOSE, URINE (UA) NEGATIVE (NEGATIVE); KETONES,URINE (UA) NEGATIVE (NEGATIVE); LEUKOCYTE ESTERASE, URINE NEGATIVE (NEGATIVE); NITRITE,URINE NEGATIVE (NEGATIVE); OCCULT BLOOD,URINE NEGATIVE (NEGATIVE); PH,URINE 6.5 PH (5.0-7.5); PROTEIN,URINE NEGATIVE (NEGATIVE); UROBILINOGEN,URINE 0.2 (NORMAL) E.U./dL (NORMAL)
[2022-06-05 13:33] LABS: CLARITY,URINE CLEAR (CLEAR)
[2022-06-05] MEDS ORDERED: iohexoL-300 100 ML VIAL IVP ONE (14:06)
[2022-06-05 14:17] VITALS: BP 156/94
== END 2022-06-05 14:28 | disposition home or self-care (01) ==
LOC: ED 10:25
DX: R10.84 Generalized abdominal pain (principal); R53.83 Other fatigue; I10 Essential (primary) hypertension; G20 Parkinson's disease
CPT/HCPCS: 36415; 74177; 80053; 81003; 83690; 85025; 99284; Q9967; 81001; 87086